=== PATIENT | female | born 1965 | race Caucasian/White ===

== ENCOUNTER 2017-07-05 06:00 | Emergency (ER) | payer BC ==
[2017-07-05 06:08] VITALS: BMI 27.8
[2017-07-05] MEDS ORDERED: ASPIRIN PO ONE (06:27)
--- NOTE | 2017-07-05 06:27 | DR.GENAD ---
HPI - PCP Primary Care Physician: NFD - Complaint/Symptoms Chief Complaint Doctors Comments: Chest pain onset this at about 0100 hrs this a.m. It is located retrosternal and feels like someone is twisting something in her. there is some radiation to her right side. She denies N/V, diaphoresis or palpitations. She states a secondary complain of dizziness but that's been ongoing. This chest pain she thought was a heartburn initially and had taken Zantac w/o relief and followed with a repeat dose. She was seen at [facility] for this same c/o some weeks back and her workup was negative for ACS. Chief Complaint:: CHESTPAINS - Nurses notes reviewed Nurses Notes Review: Yes - Source History Provided: Patient - Mode of Arrival Mode of Arrival: Ambulatory - Timing Onset of Chief Complaint: 07/05/17 PMH - PMH Past Medical History: Yes Past Medical History: GERD Past Surgical History: No - Family History History of Family Medical Conditions: Yes Family Medical History: Cancer - Social History Does patient currently use any type of tobacco product: No Have you used tobacco products in the last 12 months: No Type of Tobacco Use: None Does any household member use tobacco: No Alcohol Use: Rarely Do you use any recreational Drugs:: No Lives With: Family Lives Where: Home - infectious screening In the last 2 months have you had wt loss of >10#?: NO Have you had fever, night sweats or hemotysis?: No Have you traveled outside the country in the last 6 months?: No Isolation: Standard ROS - Review of Systems Constitutional: No Symptoms Reported Eyes: No Symptoms Reported ENTM: No Symptoms Reported Respiratoy: No Symptoms Reported Cardiovascular: Chest Pain Gastrointestinal/Abdominal: No Symptoms Reported Genitourinary: No Symptoms Reported Neurological: Dizziness Musculoskeletal: No Symptoms Reported Integumentary: No Symptoms Reported Hematologic/Lymphatic: No Symptoms Reported Endocrine: No Symptoms Reported Psychiatric: No Symptoms Reported PE - Vital Signs Vitals: Temperature 98.3 F Pulse Rate [Left Brachial] 55 Pulse Rate 60 Respiratory Rate 15 Blood Pressure [Left Arm] 103/70 Blood Pressure 124/60 O2 Sat by Pulse Oximetry 95 - General Limitations: No Limitations General Appearance: Alert, In No Apparent Distress - Head Head Exam: Normal Inspection - Eyes Eye exam: Normal Appearance - ENT ENT Exam: Normal Exam - Neck Neck Exam: Normal Inspection - Chest Chest Inspection: Normal Inspection - Respiratory Respiratory Exam: Normal Lung Sounds Bilat - Cardiovascular Cardiovascular Exam: Regular Rate, Normal Rhythm - Abdominal Exam Abdominal Exam: Normal Inspection, Normal Bowel Sounds, Soft - Extremities Extremities Exam: Normal Inspection - Back Back Exam: Normal Inspection - Neurologic Neurological Exam: Alert, Oriented X3 - Psychiatric Psychiatric Exam: Normal Affect, Normal Mood - Skin Skin Exam: Warm, Dry, Intact, Normal Color Course - Reevaluation 1st: Improved 2nd: Resolved - Education/Counseling Education/Counseling: Patient, Family, Education, Counseling Educated On: Treatment, Diagnosis, Prognosis, Needs for Follow Up ROR - Labs Reviewed Result Diagrams: 07/05/17 06:35 07/05/17 06:35 Laboratory: WBC 8.5 X10^3/uL (3.6-10.0) 07/05/17 06:35 RBC 3.93 X10^6/uL (3.5-5.4) 07/05/17 06:35 Hgb 11.6 g/dL (12.0-16.0) L 07/05/17 06:35 Hct 34.4 % (36.0-47.0) L 07/05/17 06:35 MCV 87.5 fL (80.0-100.0) 07/05/17 06:35 MCH 29.5 pg (27.0-34.0) 07/05/17 06:35 MCHC 33.7 g/dL (33.0-35.0) 07/05/17 06:35 RDW 15.7 % (11.6-16.5) 07/05/17 06:35 Plt Count 288 X10^3/uL (150.0-450.0) 07/05/17 06:35 MPV 9.6 fL (7.4-11.0) 07/05/17 06:35 Neut % (Auto) 68.7 % (42.0-75.0) 07/05/17 06:35 Lymph % (Auto) 22.0 % (21.0-51.0) 07/05/17 06:35 [place] % (Auto) 7.2 % (0.0-13.0) 07/05/17 06:35 Eos % (Auto) 1.5 % (0.9-2.9) 07/05/17 06:35 Baso % (Auto) 0.6 % (0.2-1.0) 07/05/17 06:35 Neut # (Auto) 5.8 x10^3/uL (2.2-4.8) H 07/05/17 06:35 Lymph # (Auto) 1.9 X10^3/uL (1.3-2.9) 07/05/17 06:35 [place] # (Auto) 0.6 x10^3/uL (0.3-0.8) 07/05/17 06:35 Eos # (Auto) 0.1 x10^3/uL (0.0-0.2) 07/05/17 06:35 Baso # (Auto) 0.0 X10^3/uL (0.0-0.1) 07/05/17 06:35 Absolute Nucleated RBC 0.0 /100WBC 07/05/17 06:35 INR Target Range - 07/05/17 06:35 INR 0.95 (0.8-1.3) 07/05/17 06:35 APTT 25.3 SECONDS (22.9-36.5) 07/05/17 06:35 PTT Comment - 07/05/17 06:35 Sodium 142 mmol/L (136-145) 07/05/17 06:35 Corrected Sodium TNP 07/05/17 06:35 Potassium 3.8 mmol/L (3.5-5.1) 07/05/17 06:35 Chloride 105 mmol/L (98-107) 07/05/17 06:35 Carbon Dioxide 28.2 mmol/L (21-32) 07/05/17 06:35 BUN 12 mg/dL (7-18) 07/05/17 06:35 Creatinine 0.66 mg/dL (0.55-1.02) 07/05/17 06:35 Est GFR (MDRD) Af Amer > 60 (>60) 07/05/17 06:35 Est GFR (MDRD) Non-Af > 60 (>60) 07/05/17 06:35 Glucose 107 mg/dL (65-99) H 07/05/17 06:35 Calcium 8.8 mg/dL (8.5-10.1) 07/05/17 06:35 Corrected Calcium TNP 07/05/17 06:35 Magnesium 2.0 mg/dL (1.7-2.9) 07/05/17 06:35 Total Bilirubin 0.40 mg/dL (0.2-1.0) 07/05/17 06:35 AST 31 Units/L (15-37) 07/05/17 06:35 ALT 44 Units/L (12-78) 07/05/17 06:35 Alkaline Phosphatase 96 Units/L (46-116) 07/05/17 06:35 Creatine Kinase 210 Units/L (26-192) H 07/05/17 06:35 CK-MB (CK-2) 2.6 ng/mL (0-4.0) 07/05/17 06:35 CK/CKMB % Calc 1.2 % (<4) 07/05/17 06:35 Troponin I < 0.02 ng/mL (0-1.5) 07/05/17 06:35 Total Protein 6.7 g/dL (6.4-8.2) 07/05/17 06:35 Albumin 3.7 g/dL (3.4-5.0) 07/05/17 06:35 Globulin 3.0 g/dL (2.5-4.5) 07/05/17 06:35 Albumin/Globulin Ratio 1.2 Ratio (1.1-2.1) 07/05/17 06:35 - XRAY XRAY Interpreted by: Self (underinflated lungs, otherwise no acute cardio- pulmonary disease.) - EKG Rate: 53 [place]: Normal Rhythm: NSR Block: None Hypertrophy: LVH ST: Nonsp (micro Q waves in leads: I and avL; T inversion in III, avF, V1, V3- V6 ) - Diagnosis Discharge Problem: Chest pain - Discharge Plan Disposition: 01 HOME, SELF-CARE Condition: Stable - Follow ups/Referrals Follow ups/Referrals: NFD,None [Primary Care Provider] - 3 days - Instructions Instructions: Nonspecific Chest Pain, [id number] Additional Notes - Additional Notes Additional Notes: Her old records were requested from [facility] and reviewed. Admission there was on 06/02/17 for observation status. ACS was ruled and she had 2 D-ECHO. The EKG from there was essentially same as here today. I recommended to her that she needs to see a director of casework services via her PCP. She verbalises understading of this.
[2017-07-05] MEDS ORDERED: PROTONIX TAB 40 MG PO ONE ×2 (06:41→06:44)
[2017-07-05] MEDS ORDERED: ASPIRIN ONE (06:44)
[2017-07-05 06:45] LABS: BASOPHILS % (AUTO) 0.6 % (0.2-1.0); EOSINOPHILS # (AUTO) 0.1 x10^3/uL (0.0-0.2); EOSINOPHILS % (AUTO) 1.5 % (0.9-2.9); HEMATOCRIT 34.4 % (36.0-47.0); HEMOGLOBIN 11.6 g/dL (12.0-16.0); LYMPHOCYTES # (AUTO) 1.9 X10^3/uL (1.3-2.9); MEAN CORPUSCULAR HEMOGLOBIN 29.5 pg (27.0-34.0); MEAN CORPUSCULAR HGB CONC 33.7 g/dL (33.0-35.0); MEAN CORPUSCULAR VOLUME 87.5 fL (80.0-100.0); MEAN PLATELET VOLUME 9.6 fL (7.4-11.0); MONOCYTES # (AUTO) 0.6 x10^3/uL (0.3-0.8); MONOCYTES % (AUTO) 7.2 % (0.0-13.0); NEUTROPHILS # (AUTO) 5.8 x10^3/uL (2.2-4.8); NEUTROPHILS % (AUTO) 68.7 % (42.0-75.0); PLATELET COUNT 288 X10^3/uL (150.0-450.0); RED BLOOD COUNT 3.93 X10^6/uL (3.5-5.4); RED CELL DISTRIBUTION WIDTH 15.7 % (11.6-16.5); WHITE BLOOD COUNT 8.5 X10^3/uL (3.6-10.0)
[2017-07-05 07:00] LABS: BLOOD UREA NITROGEN 12 mg/dL (7-18); CALCIUM 8.8 mg/dL (8.5-10.1); CARBON DIOXIDE 28.2 mmol/L (21-32); CHLORIDE 105 mmol/L (98-107); CREATININE 0.66 mg/dL (0.55-1.02); SODIUM 142 mmol/L (136-145); TROPONIN I < 0.02 ng/mL (0-1.5); eGFR BLACK RACES > 60 (>60); eGFR NON BLACK RACES > 60 (>60)
[2017-07-05 07:05] LABS: ALANINE AMINOTRANSFERASE 44 Units/L (12-78); ALBUMIN 3.7 g/dL (3.4-5.0); ALKALINE PHOSPHATASE 96 Units/L (46-116); ASPARTATE AMINO TRANSFERASE 31 Units/L (15-37); CKMB % 1.2 % (<4); CREATINE KINASE 210 Units/L (26-192); CREATINE KINASE MB 2.6 ng/mL (0-4.0); TOTAL PROTEIN 6.7 g/dL (6.4-8.2)
--- NOTE | 2017-07-05 07:08 | RAD ---
HISTORY: Chest pain Study: Chest AP portable Comparison: None Findings: The trachea is midline. The cardiac silhouette is unremarkable. The lungs are clear without focal i nfiltrate or effusion. The bony thorax is unremarkable. IMPRESSION: 1. No acute cardiopulmonary disease. Reported By:
[2017-07-05 08:01] VITALS: BP 112/60
== END 2017-07-05 08:30 | disposition home or self-care (01) ==
LOC: ER 06:00
DX: R07.89 Other chest pain (principal); R94.31 Abnormal electrocardiogram [ECG] [EKG]
CPT/HCPCS: 36415; 71045; 80053; 82550; 82553; 83735; 84484; 85025; 85610; 85730; 93005; 93010; 99282; 99283; 99285

== ENCOUNTER → 2017-08-19 | Outpatient (CLI) | payer BC ==
[~2017-08-19] MED LIST: LEXISCAN IV ONE
== END ==
LOC: RAD 08:49
PROVIDERS: ATTEND Internal Medicine Cardiovascular Disease
DX: R07.89 Other chest pain (principal); R11.0 Nausea; R20.2 Paresthesia of skin
CPT/HCPCS: 78452; 93017; A4222; A9502; J2785